=== PATIENT | female | born 1960 | race Caucasian/White ===

== ENCOUNTER → 2017-09-25 | Outpatient (CLI) | payer BC ==
[2017-09-25 13:52] VITALS: BP 138/76; PULSE 80; TEMP 98.1; BMI 39.4
--- NOTE | 2017-09-25 15:17 | P.HPBAR ---
Bariatric H&P - History & Physicial H&P Date: 09/25/17 History & Physicial: Visit/CC: lap band follow up Patient initial contact: Initial weight: Initial weight in pounds: Height: 5 ft 4 in Initial BMI: Last weight: Current weight: 104.19 kg Current weight in pounds: 229.70 Current BMI: 39.4 [place] body weight (based on NIH guidelines): 54.431 kg Excess body weight loss: The patient is a 56 year-old F who presents for Bariatric Assessment. Patient has some complaints of dysphagia. She wishes to have her LAP-BAND volume decreased. Past Medical History Past Medical History: Blood Disorder Additional Past Medical History / Comment(s): factor 5 clotting disorder History of Any Multi-Drug Resistant Organisms: None Reported Past Surgical History: Ablation, Appendectomy, Bariatric Surgery, Cholecystectomy, Hysterectomy, Tonsillectomy Additional Past Surgical History / Comment(s): lap band surgery 2010 cardiac ablation Past Anesthesia/Blood Transfusion Reactions: Postoperative Nausea & Vomiting ( PONV) Past Psychological History: No Psychological Hx Reported Smoking Status: Never smoker Past Alcohol Use History: None Reported Past Drug Use History: None Reported Surgical - Exam Vital Signs Temp Pulse BP 98.1 F 80 138/76 09/25/17 13:48 09/25/17 13:48 09/25/17 13:48 - General well developed, well nourished, no distress - Eyes PERRL - ENT normal pinna - Neck no masses - Respiratory normal expansion - Cardiovascular Rhythm: regular - Abdomen Abdomen: soft, non tender Hernia: none Bariatric Assessment & Plan Plan: The patient had a an esophagram performed. There is no significant occlusion of her LAP-BAND. She had 0.5 mL remove her band. She'll follow-up in 4 weeks. Bariatric Checklist Checklist: Plan: Checklist: EGD: 1. Hiatal hernia: 2. H. Pylori: HgbA1c: Vitamin D: Smoking: Never smoker Primary care physician referral: Psychiatry clearance: Cardiology clearance: Sleep study: Diet journal: VTE risk score: VTE risk level: Rehab needs at discharge:
--- NOTE | 2017-09-25 15:47 | FL ---
EXAMINATION TYPE: FL barium swallow DATE OF EXAM: 09/25/2017 LAP BANDING LIMITED ESOPHAGRAM: CLINICAL HISTORY: Pressure and pain at the lap band and port sign for one month. TECHNIQUE: Limited esophagram is performed utilizing 3 oz of EZ Paque. 1.46 min of flouro time was utilized with 16 images saved. COMPARISON: 04/26/2011 FINDINGS: Pre-procedure director of cardiopulmonary services image shows lap band in satisfactory position in proximal stomach ju st below the gastroesophageal junction. The Phi angle is within normal limits measuring 50 degrees. After administration of oral contrast there is minimal delay of flow of contrast along just proximal to the gastric lap band near the gastroesophageal junction. This results in mild stasis at the dista l esophagus and mild intraesophageal reflux. There is no evidence of contrast extravasation to sugges t leak. There is no significant gastric prolapse appreciated. IMPRESSION: 1. Mild delayed passage of contrast representing mild obstruction due to gastric lap band with proxim al dilatation and mild distal intraesophageal reflux. 2. No evidence of prolapse or extravasation.
== END | disposition home or self-care (01) ==
LOC: BARWHC3 13:33
PROVIDERS: ATTEND Surgery
DX: Z46.51 Encounter for fitting and adjustment of gastric lap band (principal); K91.89 Other postprocedural complications and disorders of digestive system; K21.9 Gastro-esophageal reflux disease without esophagitis; Z90.49 Acquired absence of other specified parts of digestive tract; Z98.890 Other specified postprocedural states; Z98.84 Bariatric surgery status
CPT/HCPCS: 74220; 99213